=== PATIENT | female | born 1965 | race Caucasian/White ===

== ENCOUNTER → 2018-11-28 | Outpatient (CLI) | payer OTHER ==
[2018-11-28 17:31] LABS: HEMATOCRIT 37.3 % (37.0-47.0); HEMOGLOBIN 12.8 gm/dL (12.0-15.0); MCH 30.6 pg (26.0-34.0); MCHC 34.4 g/dL (28.0-37.0); MCV 88.9 fL (80.0-100.0); MPV 7.2 fl. (7.2-11.1); RBC 4.19 mil/uL (4.20-5.00); WBC 4.7 thou/uL (4.0-11.0)
[2018-11-30 13:12] LABS: ANA INTERPRETATION Negative (Negative)
== END ==
LOC: M.LAB 17:09
PROVIDERS: Orthopaedic Surgery
DX: R60.0 Localized edema (principal)